=== PATIENT | female | born 1970 | race Caucasian/White ===

== ENCOUNTER 2016-08-07 12:21 | Emergency (ER) | payer MEDICARE, MEDICAID ==
[2016-08-07 12:33] VITALS: BP 154/102
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
== END 2016-08-07 13:02 | disposition home or self-care (01) ==
LOC: JP.ED 12:21
DX: L30.9 Dermatitis, unspecified (principal); H54.7 Unspecified visual loss; E78.00 Pure hypercholesterolemia, unspecified; I10 Essential (primary) hypertension; J45.909 Unspecified asthma, uncomplicated; K21.9 Gastro-esophageal reflux disease without esophagitis; Z90.49 Acquired absence of other specified parts of digestive tract; Z98.84 Bariatric surgery status; Z79.899 Other long term (current) drug therapy
CPT/HCPCS: 99282; 99283

== ENCOUNTER 2017-06-11 22:50 | Emergency (ER) | payer MEDICAID, MEDICARE ==
[2017-06-11 23:15] VITALS: BP 163/84
[2017-06-11] MEDS ORDERED: Glycerin Adult 2.1 GM Supp RECTAL ONE (23:26)
--- NOTE | 2017-06-11 23:32 | EDM.PDOC ---
ED HPI GENERAL MEDICAL PROBLEM - General Chief Complaint: Abdominal Pain Stated Complaint: BLOOD IN STOOL Time Seen by Provider: 06/11/17 23:15 Source of Information: Reports: Patient, Old Records, RN History Limitations: Reports: No Limitations - History of Present Illness INITIAL COMMENTS - FREE TEXT/NARRATIVE: 46 yo female presents with blood on her stool and on the toilet paper after passing a hard stool tonight. Has a pHx of both hemorrhoids and an anal fissure. She has not had colonoscopy. She did have some anal pain with the passage of the stool. She also notes some mild suprapubic tenderness today. No fever. Not more dizzy with standing than normal. No nausea. Onset: Today Onset Date: 06/11/17 Duration: Minutes:, Other (one episode only) Location: Reports: Abdomen (low) Quality: Reports: Dull Severity: Mild Improves with: Reports: None Worsens with: Reports: None Context: Reports: Other (blood with stool passage tonight.) Associated Symptoms: Denies: Diaphoresis, Fever/Chills, Loss of Appetite, Malaise, Nausea/Vomiting, Shortness of Breath, Syncope, Weakness Treatments MANAGEMENT SPECIALIST: Reports: Other (see below) (none) Lower Pelvic Pain Score (Numeric/FACES): 8 - Related Data Allergies Allergy/AdvReac Type Severity Reaction Status Date / Time No Known Allergies Allergy Verified 06/11/17 23:13 Home Meds: Home Meds Citalopram [Citalopram HBr] 60 mg PO DAILY 09/20/13 [History] Ferrous Sulfate 500 gm MC BIDMEALS 09/20/13 [History] Loratadine [Claritin RediTabs] 10 mg PO DAILY PRN 09/20/13 [History] Meclizine [Antivert] 25 mg PO DAILY PRN 09/20/13 [History] Naproxen [EC-Naprosyn] 500 mg PO BID PRN 09/20/13 [History] Vit B12/Fa/Pyridoxine HCl/AA15 [Glycotrol] 1 cap PO QAM 09/20/13 [History] Vit D3/Folic Acid/B2/B6/B12 [Folgard Tablet] 1 cap PO QAM 09/20/13 [History] Zolpidem [Ambien] 10 mg PO BEDTIME 09/20/13 [History] Albuterol Sulfate [Proair Hfa] 1 - 2 puff IH Q4H PRN 06/02/14 [History] Albuterol [Proventil Neb Soln] 3 ml INH Q6H PRN 06/02/14 [History] Fluticasone Propionate [Flovent HFA 110 MCG] 2 puff INH BID PRN 06/02/14 [ History] Calcium Citrate/Vitamin D3 [Calcium Citrate + D] 1 tab.chew PO BID 06/20/14 [ History] metFORMIN HCl [Metformin HCl] 500 mg PO BIDMEALS 07/29/15 [History] Ondansetron [Zofran ODT] 4 mg PO Q4HR PRN #30 tab.dis 07/30/15 [Rx] Omeprazole Magnesium [Prilosec Otc] 20 mg PO DAILY 08/18/15 [History] Sulfamethoxazole/Trimethoprim [IJD: Sulfamethoxazole/Trimethoprim DS] 1 tab PO BID #18 tablet 11/02/15 [Rx] Past Medical History HEENT History: Reports: Allergic Rhinitis, Impaired Vision Cardiovascular History: Reports: High Cholesterol, Hypertension Respiratory History: Reports: Asthma, Bronchitis, Recurrent Gastrointestinal History: Reports: Cholelithiasis, Chronic Constipation, GERD Genitourinary History: Reports: UTI, 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2 Used Tobacco, but Quit: Yes Month/Year Tobacco Last Used: 2005 Second Hand Smoke Exposure: No - Caffeine Use Caffeine Use: Reports: Coffee - Alcohol Use Days Per Week of Alcohol Use: 0 Number of Drinks Per Day: 1 Total Drinks Per Week: 0 - Recreational Drug Use Recreational Drug Use: No - Living Situation & Occupation Living situation: Reports: Occupation: Disabled ED ROS GENERAL - Review of Systems Review Of Systems: See Below Constitutional: Reports: No Symptoms HEENT: Reports: No Symptoms, Vertigo Cardiovascular: Reports: No Symptoms Endocrine: Reports: No Symptoms GI/Abdominal: Reports: Abdominal Pain (mild suprapubic tenderness.), Bloody Stool, Constipation (hard stool, incomplete evacuation.), Hematochezia. Denies : Anorexia, Black Stool, Diarrhea, Decreased Appetite, Difficulty Swallowing, Distension, Flatus, Hematemesis, Melena, Nausea, Vomiting : Denies: No Symptoms Musculoskeletal: Reports: No Symptoms Skin: Reports: No Symptoms Neurological: Reports: No Symptoms ED EXAM, GI/ABD - Physical Exam Exam: See Below Exam Limited By: No Limitations General Appearance: Alert, WD/WN, No Apparent Distress Eyes: Bilateral: Normal Appearance Ears: Normal External Exam, Normal Canal, Hearing Grossly Normal, Normal TMs Nose: Normal Inspection, Normal Mucosa, No Blood Throat/Mouth: Normal Inspection, Normal Lips, Normal Oropharynx, Normal Voice, No Airway Compromise Head: Atraumatic, Normocephalic Neck: Normal Inspection, Supple, Non-Tender Respiratory/Chest: No Respiratory Distress, Lungs Clear, Normal Breath Sounds, No Accessory Muscle Use Cardiovascular: Regular Rate, Rhythm GI/Abdominal Exam: Normal Bowel Sounds, Soft, No Distention, Tender (very slight suprapubic tenderness.) Back Exam: Normal Inspection. No: CVA Tenderness (R), CVA Tenderness (L) Extremities: Normal Inspection, Normal Range of Motion, Non-Tender, No Pedal Edema Neurological: Alert, Oriented, CN II-XII Intact, Normal Cognition, No Motor/ Sensory Deficits Psychiatric: Normal Affect, Normal Mood Skin Exam: Warm, Dry, Intact, Normal Color, No Rash Lymphatic: No Adenopathy Course - Vital Signs Text/Narrative:: No stool with glycerin supp, liquidy stool with Fleets enema-no pain relief. Last Recorded V/S: Last Vital Signs Temp 37.0 C 06/11/17 23:11 Pulse 94 06/11/17 23:11 Resp 18 06/11/17 23:11 BP 163/84 H 06/11/17 23:11 Pulse Ox 98 06/11/17 23:11 - Orders/Labs/Meds Orders: Active Orders 24 hr Category Date Time Status Enema [RC] ASDIRECTED Care 06/12/17 00:38 Active Abdomen 1V Flat [CR] Stat Exams 06/12/17 01:44 Taken Abdomen Pelvis w Cont [CT] Stat Exams 06/12/17 02:07 Taken UA W/MICROSCOPIC [URIN] Stat Lab 06/11/17 23:31 Ordered Magnesium Citrate [Citrate of Magnesia] Med 06/12/17 04:10 Once 296 ml PO ONETIME ONE Labs: Laboratory Tests 06/11/17 06/11/17 06/12/17 Range/Units 23:31 23:35 00:06 WBC 11.2 H (4.5-11.0) K/uL RBC 4.38 (3.30-5.50) M/uL Hgb 11.9 L (12.0-15.0) g/dL Hct 37.9 (36.0-48.0) % MCV 87 (80-98) fL MCH 27 (27-31) pg MCHC 31 L (32-36) % Plt Count 266 (150-400) K/uL C-Reactive Protein 0.60 H (0.0-0.3) mg/dL Urine Color Yellow Urine Appearance Clear Urine pH 6.0 (4.5-8.0) Ur Specific [place] 1.010 (1.008-1.030) Urine Protein Negative (NEGATIVE) mg/dL Urine Glucose (UA) Normal (NEGATIVE) mg/dL Urine Ketones Negative (NEGATIVE) mg/dL Urine Occult Blood Large (NEGATIVE) Urine Nitrite Negative (NEGATIVE) Urine Bilirubin Negative (NEGATIVE) Urine Urobilinogen Normal (NORMAL) mg/dL Ur Leukocyte Esterase Small (NEGATIVE) Urine RBC 0-5 (0-5) Urine WBC 0-5 (0-5) Ur Epithelial Cells Few Amorphous Sediment Few Urine Bacteria Few Urine Mucus Not seen Meds: Medications Discontinued Medications Generic Name Dose Route Start Last Admin Trade Name Freq PRN Reason Stop Dose Admin Acetaminophen 1,000 mg 06/11/17 23:47 06/11/17 23:51 Tylenol Extra Strength PO 06/11/17 23:48 1,000 mg ONETIME ONE Administration Glycerin 1 supp 06/11/17 23:26 06/11/17 23:35 Sani-Supp Adult RECTAL 06/11/17 23:27 1 supp ONETIME ONE Administration Sodium Chloride 79 mls @ 3.9 mls/sec 06/12/17 02:43 06/12/17 02:57 Normal Saline IV 06/12/17 02:44 3.9 mls/sec ASDIRECTED STA Administration Iopamidol 129 ml 06/12/17 02:43 06/12/17 02:57 Isovue-300 (61%) IV 06/12/17 02:44 150 ml . DIRECTED STA Administration Ketorolac Tromethamine 30 mg 06/12/17 02:12 06/12/17 02:23 Toradol IVPUSH 06/12/17 02:13 30 mg ONETIME ONE Administration - Radiology Interpretation Free Text/Narrative:: Abdominal [id number] stool throughout the abdomen CT abdomen/pelvis-stool in colon, otherwise neg. CT Results Date: 06/12/17 CT Results Time: 04:10 Departure - Departure Time of Disposition: 15:00 Disposition: Home, Self-Care 01 Condition: Good Clinical Impression: Anal fissure Constipation Qualifiers: Constipation type: unspecified constipation type Qualified Code(s): K59.00 - Constipation, unspecified - Discharge Information Referrals: Kannan Blue MD [Primary Care Provider] - Forms: ED Department Discharge - My Orders Last 24 Hours: My Active Orders 06/11/17 23:31 UA W/MICROSCOPIC [URIN] Stat 06/12/17 00:38 Enema [RC] ASDIRECTED 06/12/17 01:44 Abdomen 1V Flat [CR] Stat 06/12/17 02:07 Abdomen Pelvis w Cont [CT] Stat 06/12/17 04:10 Magnesium Citrate [Citrate of Magnesia] 296 ml PO ONETIME ONE - Assessment/Plan Last 24 Hours: My Active Orders 06/11/17 23:31 UA W/MICROSCOPIC [URIN] Stat 06/12/17 00:38 Enema [RC] ASDIRECTED 06/12/17 01:44 Abdomen 1V Flat [CR] Stat 06/12/17 02:07 Abdomen Pelvis w Cont [CT] Stat 06/12/17 04:10 Magnesium Citrate [Citrate of Magnesia] 296 ml PO ONETIME ONE
[2017-06-11] MEDS ORDERED: Acetaminophen 500 MG Tab PO ONE (23:47)
[2017-06-12] MEDS ORDERED: Ketorolac 30 MG/ML SDV IVPUSH ONE (02:12)
[2017-06-12] MEDS ORDERED: Iopamidol 612 MG/ML 150 ML Bottle IV STA (02:43)
[2017-06-12] MEDS ORDERED: Magnesium Citrate Solution 296 ML Bottle PO ONE (04:10)
--- NOTE | 2017-06-13 09:03 | CR ---
Abdomen 1V Flat HISTORY: pain FINDINGS: Bowel gas pattern is nonspecific. No obstruction or free air is identified. No soft tissue mass, orga nomegaly, or abnormal calcifications are seen. Bony structures are unremarkable. IMPRESSION: Nonspecific abdomen.
== END 2017-06-12 04:31 | disposition home or self-care (01) ==
LOC: JP.ED 22:50
DX: K60.2 Anal fissure, unspecified (principal); K59.00 Constipation, unspecified; E78.00 Pure hypercholesterolemia, unspecified; I10 Essential (primary) hypertension; J45.909 Unspecified asthma, uncomplicated; K21.9 Gastro-esophageal reflux disease without esophagitis; E11.9 Type 2 diabetes mellitus without complications; Z87.440 Personal history of urinary (tract) infections; Z98.84 Bariatric surgery status; Z79.899 Other long term (current) drug therapy
CPT/HCPCS: 36415; 74018; 74177; 81001; 85027; 86140; 96374; 99285; A9270; J1885; J7030; 99283

== ENCOUNTER 2017-06-21 07:37 | Day surgery (SDC) | payer MEDICARE, MEDICAID ==
[2017-06-21] MEDS ORDERED: Lactated Ringers 1,000 ML IV SCH (08:15)
[2017-06-21] MEDS ORDERED: ceFAZolin 1 GM in Premix Bag 1 BAG IV ONE (08:45)
[2017-06-21] MEDS ORDERED: ceFAZolin 1 GM in Sodium Chloride 0.9% 50 ML IV ONE (08:45)
[2017-06-21] MEDS ORDERED: Bupivacaine 0.5% 50 ML MDV ONE (09:09)
[2017-06-21] MEDS ORDERED: fentaNYL 100 MCG/2 ML SDV ONE (09:28)
[2017-06-21] MEDS ORDERED: Midazolam 1 MG/ML 2 ML SDV ONE (09:28)
[2017-06-21] MEDS ORDERED: Propofol 200 MG/20 ML SDV ONE (09:28)
[2017-06-21] MEDS ORDERED: Acetaminophen/HYDROcodone 325-5 MG Tab PO PRN (10:44)
[2017-06-21 11:02] VITALS: BP 136/83
--- NOTE | 2017-06-21 18:18 | OR ---
DATE OF PROCEDURE: 06/21/2017 PREOPERATIVE DIAGNOSIS: Left carpal tunnel. POSTOPERATIVE DIAGNOSIS: Left carpal tunnel. PROCEDURE PERFORMED: Release of left transverse carpal ligament. ESTIMATED BLOOD LOSS: Minimum. COMPLICATIONS: No complication. INDICATIONS: Dolly is a healthy 46-year-old, had an EMG in February of this year. She has been having some tingling, numbness sensation of the territory of the median nerve of her left. The EMG showed moderate carpal tunnel, but since this was progressive not only at night but during the daytime, still bothered, decided to proceed with surgery. I discussed with the patient the possible risks, benefits, alternatives, and complications of surgery. The nature of the surgery was explained. All questions were answered and I had informed consent. DESCRIPTION OF THE PROCEDURE: The patient was brought to the OR. I did my markings on the left wrist. She did receive antibiotics preop. The DAM OPERATOR proceeded with slight IV sedation. The patient was put on her back and tourniquet was applied to the left upper extremity in proximity. Sterile prep and dressing were done in the usual manner on the left hand. Time- out was taken to identify the correct surgical site to make sure all instrumentation were present in the room. I did local block with Marcaine 0.25 plain subcutaneous tissue over the left wrist. The arm was elevated, tourniquet was raised to 250 mmHg. A 3 cm incision was done starting at the wrist crease going ulnar to the thenar muscle belly and dissection was carried down to the subcutaneous tissue, down to the transverse carpal ligament. A slight opening was done proximally to the transverse carpal ligament making sure not to violate the deep structures, afterwards the groove adapter was passed underneath the transverse carpal ligament and a gradual release is done with the scalpel which went well. She had a slight inflammation of the nerve, but the nerve was intact. The site was washed with saline. The skin was closed with nylon 3-0 simple sutures and the compressing dressing was applied. Tourniquet was released. Blood loss was minimum. There was no complication. The patient tolerated well the operation and she was to recovery room in good condition. Adalid Upton MD /[id number]
== END 2017-06-21 11:24 | disposition home or self-care (01) ==
LOC: JP.SDS 07:37
PROVIDERS: ATTEND Orthopaedic Surgery
DX: G56.02 Carpal tunnel syndrome, left upper limb (principal); E11.9 Type 2 diabetes mellitus without complications; E66.01 Morbid (severe) obesity due to excess calories; K21.9 Gastro-esophageal reflux disease without esophagitis; J45.909 Unspecified asthma, uncomplicated; F33.41 Major depressive disorder, recurrent, in partial remission; F41.8 Other specified anxiety disorders; Z79.899 Other long term (current) drug therapy; Z98.84 Bariatric surgery status
CPT/HCPCS: 64721; A9270; J0690; J2250; J2704; J3010; J7120

== ENCOUNTER 2019-05-03 08:41 | Emergency (ER) | payer MEDICARE, MEDICAID ==
--- NOTE | 2019-05-03 09:20 | EDM.PDOC ---
ED HPI GENERAL MEDICAL PROBLEM - General Chief Complaint: Respiratory Problem Stated Complaint: CHEST PAINS Time Seen by Provider: 05/03/19 09:19 Source of Information: Reports: Patient History Limitations: Reports: No Limitations - History of Present Illness INITIAL COMMENTS - FREE TEXT/NARRATIVE: pt has been having chest pain for the last 2 days. She has a history of hypertension, up lipids, and diabetes. Onset: Other ( started yesterday. ) Duration: Hour(s): Location: Reports: Chest Associated Symptoms: Reports: Chest Pain, Shortness of Breath Anterior Chest Pain Score (Numeric/FACES): 7 - Related Data Allergies Allergy/AdvReac Type Severity Reaction Status Date / Time No Known Allergies Allergy Verified 05/03/19 08:56 Home Meds: Home Meds Citalopram [Citalopram HBr] 80 mg PO DAILY 09/20/13 [History] Ferrous Sulfate 500 gm MC BIDMEALS 09/20/13 [History] Loratadine [Claritin RediTabs] 10 mg PO DAILY PRN 09/20/13 [History] Meclizine [Antivert] 25 mg PO Q6H PRN 09/20/13 [History] Naproxen [EC-Naprosyn] 500 mg PO BID 09/20/13 [History] Zolpidem [Ambien] 5 mg PO BEDTIME PRN 09/20/13 [History] Albuterol Sulfate [Proair Hfa] 1 - 2 puff IH Q4H PRN 06/02/14 [History] Albuterol [Proventil Neb Soln] 3 ml INH Q6H PRN 06/02/14 [History] Fluticasone Propionate [Flovent HFA 110 MCG] 2 puff INH BID PRN 06/02/14 [ History] Calcium Citrate/Vitamin D3 [Calcium Citrate + D] 1 tab.chew PO BID 06/20/14 [ History] metFORMIN HCl [Metformin HCl] 500 mg PO BIDMEALS 07/29/15 [History] Cholecalciferol (Vitamin D3) [Vitamin D3] 3,000 unit PO DAILY 06/20/17 [History] Cyanocobalamin (Vitamin B-12) [Vitamin B-12] 1,000 mcg SL DAILY 06/20/17 [ History] Docusate Sodium [DOK] 100 mg PO BID 06/20/17 [History] Fruity Chewables Multivitamin 1 tab PO BID 06/20/17 [History] Nitroglycerin [Nitrostat] 0.4 mg SL ASDIRECTED PRN 06/20/17 [History] Nystatin [Nystatin Oint] 1 applic TP BID PRN 06/20/17 [History] Triamcinolone Acetonide [Kenalog 0.1% Crm] 1 applic TOP TID PRN 06/20/17 [ History] Vitamin B Complex [B Complex] 1 each PO DAILY 06/20/17 [History] medroxyPROGESTERone Acetate [Depo-Provera] 150 mg IM Q90D 06/20/17 [History] traZODone HCl [Trazodone HCl] 150 mg PO BEDTIME 06/20/17 [History] Past Medical History HEENT History: Reports: Allergic Rhinitis, Impaired Vision Cardiovascular History: Reports: High Cholesterol, Hypertension Respiratory History: Reports: Asthma, Bronchitis, Recurrent Gastrointestinal History: Reports: Cholelithiasis, Chronic Constipation, GERD Genitourinary History: Reports: UTI, Recurrent 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: Musculoskeletal History: Reports: Osteoarthritis Psychiatric History: Reports: Anxiety, Depression, Panic Attack Endocrine/Metabolic History: Reports: Diabetes, Type II Hematologic History: Reports: B12 Deficiency Dermatologic History: Reports: Cellulitis - Infectious Disease History Infectious Disease History: Reports: Chicken Pox - Past Surgical History Cardiovascular Surgical History: Reports: None Respiratory Surgical History: Reports: None GI Surgical History: Reports: Bariatric Procedure, Cholecystectomy, EGD, Hernia Repair/Other Female Surgical History: Reports: Section Endocrine Surgical History: Reports: None Musculoskeletal Surgical History: Reports: None, Carpal Tunnel Dermatological Surgical History: Reports: None Social & Family History - Family History Family Medical History: Noncontributory - Tobacco Use Smoking Status *Q: Never Smoker Second Hand Smoke Exposure: No - Caffeine Use Caffeine Use: Reports: Coffee, Soda - Recreational Drug Use Recreational Drug Use: No - Living Situation & Occupation Living situation: Reports: Occupation: Disabled ED ROS GENERAL - Review of Systems Review Of Systems: See Below Constitutional: Reports: No Symptoms HEENT: Reports: No Symptoms Respiratory: Reports: Shortness of Breath Cardiovascular: Reports: Chest Pain, Other ( this started 2 days ago. ) Endocrine: Reports: No Symptoms GI/Abdominal: Reports: No Symptoms : Reports: No Symptoms Musculoskeletal: Reports: No Symptoms Skin: Reports: No Symptoms Neurological: Reports: No Symptoms Psychiatric: Reports: Anxiety ED EXAM, GENERAL - Physical Exam Exam: See Below Free Text/Narrative:: pt arrived complaining of chest pain. She is mildly sob. She does have risk factors in that she is diabetic, hads hypertension and up lipids. Her Ekg shows only minor changes. Exam Limited By: No Limitations General Appearance: Alert, Anxious, Mild Distress Ears: Normal TMs Nose: Normal Inspection Throat/Mouth: Normal Inspection Head: Atraumatic Neck: Normal Inspection Respiratory/Chest: No Respiratory Distress Cardiovascular: Regular Rate, Rhythm GI/Abdominal: Soft, Non-Tender (Female) Exam: Deferred Rectal (Female) Exam: Deferred Back Exam: Normal Inspection Extremities: Normal Inspection Neurological: Alert, Oriented, Normal Cognition Course - Vital Signs Last Recorded V/S: Last Vital Signs Temp 36.8 C 05/03/19 09:04 Pulse 94 05/03/19 09:56 Resp 16 05/03/19 09:56 BP 135/72 05/03/19 09:56 Pulse Ox 97 05/03/19 09:56 - Orders/Labs/Meds Orders: Active Orders 24 hr Category Date Time Status EKG Documentation Completion [RC] ASDIRECTED Care 05/03/19 09:29 Active IRON/TIBC [CHEM] Stat Lab 05/03/19 10:14 Ordered Nitroglycerin [Nitrostat] Med 05/03/19 09:33 Active 0.4 mg SL Q5M PRN EKG 12 Lead [EK] Routine Ther 05/03/19 09:29 Ordered Medication Orders Nitroglycerin (Nitrostat) 0.4 mg SL Q5M PRN PRN Reason: Chest Pain Last Admin: 05/03/19 09:54 Dose: 0.4 mg Admin: 05/03/19 09:39 Dose: 0.4 mg Labs: Laboratory Tests 05/03/19 05/03/19 05/03/19 Range/Units 09:38 09:38 09:38 WBC 9.4 (4.5-11.0) K/uL RBC 3.99 (3.30-5.50) M/uL Hgb 10.1 L (12.0-15.0) g/dL Hct 33.8 L (36.0-48.0) % MCV 85 (80-98) fL MCH 25 L (27-31) pg MCHC 30 L (32-36) % Plt Count 267 (150-400) K/uL Neut % (Auto) 59 (36-66) % Lymph % (Auto) 25 (24-44) % [place] % (Auto) 11 H (2-6) % Eos % (Auto) 5 H (2-4) % Baso % (Auto) 0 (0-1) % Sodium 142 (140-148) mmol/L Potassium 3.7 (3.6-5.2) mmol/L Chloride 106 (100-108) mmol/L Carbon Dioxide 24 (21-32) mmol/L Anion Gap 11.7 (5.0-14.0) mmol/L BUN 7 (7-18) mg/dL Creatinine 1.0 (0.6-1.0) mg/dL Est Cr Clr Drug Dosing 48.88 mL/min Estimated GFR (MDRD) 59 L (>60) Glucose 86 (74-106) mg/dL Calcium 8.0 L (8.5-10.1) mg/dL Total Bilirubin 0.8 D (0.2-1.0) mg/dL AST 19 (15-37) U/L ALT 22 (12-78) U/L Alkaline Phosphatase 104 (46-116) U/L Troponin I < 0.017 (0.000-0.056) ng/mL Total Protein 6.7 (6.4-8.2) g/dL Albumin 3.3 L (3.4-5.0) g/dL Globulin 3.4 (2.3-3.5) g/dL Albumin/Globulin Ratio 1.0 L (1.2-2.2) Meds: Medications Generic Name Dose Route Start Last Admin Trade Name Freq PRN Reason Stop Dose Admin Nitroglycerin 0.4 mg 05/03/19 09:33 05/03/19 09:54 Nitrostat SL 0.4 mg Q5M PRN Administration Chest Pain Discontinued Medications Generic Name Dose Route Start Last Admin Trade Name Freq PRN Reason Stop Dose Admin Aspirin 324 mg 05/03/19 09:29 05/03/19 09:38 Aspirin PO 05/03/19 09:30 324 mg ONETIME ONE Administration Ketorolac Tromethamine 60 mg 03/12/20 10:26 Toradol IM 05/03/19 10:27 ONETIME ONE - Re-Assessments/Exams Free Text/Narrative Re-Assessment/Exam: 05/03/19 10:22 pt had a unremarkable ekg. Her trop is normal. She is tender in the ant chest when she is palpated. She had a chest xray that was clear. She did just start a new job where she has to do lifting. Departure - Departure Time of Disposition: 10:25 Disposition: Home, Self-Care 01 Condition: Fair Clinical Impression: Atypical chest pain - Discharge Information Referrals: Kannan Blue MD [Primary Care Provider] - Forms: ED Department Discharge Care Plan Goals: rtc for a exercise cardiolyte, no work today and then return as usual, motrin 600mg tid for chest wall pain. I believe this is related to lifting things she is not used too.follow up with Dr Blue in the next week. Sepsis Event Note - Evaluation Sepsis Screening Result: No Definite Risk - Focused Exam Vital Signs: Vital Signs Temp Pulse Resp BP BP Pulse Ox 05/03/19 09:56 94 16 135/72 97 05/03/19 09:54 135/72 05/03/19 09:39 136/81 05/03/19 09:04 36.8 C 92 16 136/81 97 05/03/19 08:55 36.8 C 92 16 136/81 97 Date Exam was Performed: 05/03/19 Time Exam was Performed: 10:30 - My Orders Last 24 Hours: My Active Orders 05/03/19 09:29 EKG Documentation Completion [RC] ASDIRECTED EKG 12 Lead [EK] Routine 05/03/19 09:33 Nitroglycerin [Nitrostat] 0.4 mg SL Q5M PRN 05/03/19 10:14 IRON/TIBC [CHEM] Stat - Assessment/Plan Last 24 Hours: My Active Orders 05/03/19 09:29 EKG Documentation Completion [RC] ASDIRECTED EKG 12 Lead [EK] Routine 05/03/19 09:33 Nitroglycerin [Nitrostat] 0.4 mg SL Q5M PRN 05/03/19 10:14 IRON/TIBC [CHEM] Stat
[2019-05-03] MEDS ORDERED: Aspirin 81 MG Tab.Chew PO ONE (09:29)
[2019-05-03] MEDS: Nitroglycerin 0.4 MG Tab.SL SL PRN ×2 (09:39→09:54)
[2019-05-03 09:55] VITALS: BP 135/72
[2019-05-03 09:56] VITALS: PULSE 94
--- NOTE | 2019-05-03 10:11 | CR ---
CHEST: 2 view CLINICAL HISTORY:Chest pain COMPARISON:2016 FINDINGS: The heart size, pulmonary vascularity and hilar structures are normal. No infiltrate effusion or pneumothorax is seen. IMPRESSION: No acute cardiopulmonary process.
[2019-05-03] MEDS ORDERED: Ketorolac 60 MG/2 ML SDV IM ONE (10:26)
== END 2019-05-03 10:50 | disposition home or self-care (01) ==
LOC: JP.ED 08:41
DX: R07.89 Other chest pain (principal); I10 Essential (primary) hypertension; E78.00 Pure hypercholesterolemia, unspecified; K21.9 Gastro-esophageal reflux disease without esophagitis; F41.9 Anxiety disorder, unspecified; F32.9 Major depressive disorder, single episode, unspecified; E11.9 Type 2 diabetes mellitus without complications; J45.909 Unspecified asthma, uncomplicated; Z79.899 Other long term (current) drug therapy; Z79.4 Long term (current) use of insulin
CPT/HCPCS: 36415; 71046; 80053; 83550; 84484; 85025; 93005; 96372; 99285; A9270; J1885

== ENCOUNTER 2020-04-11 07:42 | Day surgery (SDC) | payer MEDICARE, MEDICAID ==
[2020-04-11] MEDS ORDERED: Propofol 200 MG/20 ML SDV ONE (08:02)
[2020-04-11] MEDS ORDERED: fentaNYL 100 MCG/2 ML SDV ONE ×2 (08:03→09:36)
[2020-04-11] MEDS ORDERED: Midazolam 1 MG/ML 2 ML SDV ONE ×2 (08:03→09:36)
[2020-04-11] MEDS ORDERED: Dextrose 5%-Lactated Ringers 1,000 ML IV SCH (08:15)
[2020-04-11 11:13] VITALS: BP 133/81; PULSE 70
--- NOTE | 2020-04-20 11:46 | OR ---
DATE OF PROCEDURE: 04/11/2020 SURGEON: Dino Travis MD PREOPERATIVE DIAGNOSIS: Indications for screening colonoscopy. POSTOPERATIVE DIAGNOSIS: Normal colonoscopy. OPERATIVE PROCEDURE: Flexible colonoscopy. ANESTHESIA: IV sedation. INDICATIONS FOR PROCEDURE: A 49-year-old female presenting for initial colonoscopy. She has no personal or family history of colon polyps or carcinoma. The plan is to proceed with a colonoscopy with biopsies and/or polypectomy as indicated. Potential risks including bleeding and perforation were discussed, and the patient wishes to proceed. DETAILS OF PROCEDURE: The patient was taken to the operating room, placed in a left lateral decubitus position. IV sedation was administered, after which the initial digital rectal exam was performed and was unremarkable. Colonoscope was then passed into the rectum with retroflexion revealing uncomplicated hemorrhoidal columns. Scope was then eventually passed to the level of the cecum. There was fairly good prep with small amount of liquid and some solid stool was present, but the vast majority of the mucosal surfaces were well visualized. To that level, there were no diverticula. No areas of colitis. No polyps or other signs of neoplasia. Scope was then withdrawn, the above findings were reconfirmed, and the procedure was then concluded. Due to the normal exam today and the lack of any other personal history of colonic neoplasia, next examination should be planned in 10 years. Dino Travis MD /[id number]
== END 2020-04-11 11:14 | disposition home or self-care (01) ==
LOC: JP.SDS 07:42
PROVIDERS: ATTEND Surgery
DX: Z12.11 Encounter for screening for malignant neoplasm of colon (principal); K64.9 Unspecified hemorrhoids; J45.909 Unspecified asthma, uncomplicated; E11.9 Type 2 diabetes mellitus without complications; E66.01 Morbid (severe) obesity due to excess calories; Z68.42 Body mass index [BMI] 45.0-49.9, adult
CPT/HCPCS: 81025; J2250; J2704; J3010; J7121

== ENCOUNTER 2021-04-27 07:54 | Emergency (ER) | payer MEDICARE, MEDICAID ==
[2021-04-27 08:08] VITALS: BP 168/93; PULSE 112
[2021-04-27 08:52] LABS: CORONAVIRUS COVID-19 NAA NEGATIVE (NEGATIVE)
== END 2021-04-27 10:37 | disposition home or self-care (01) ==
LOC: JP.ED 07:54
DX: N39.0 Urinary tract infection, site not specified (principal); E78.00 Pure hypercholesterolemia, unspecified; I10 Essential (primary) hypertension; J45.909 Unspecified asthma, uncomplicated; E11.9 Type 2 diabetes mellitus without complications; E66.9 Obesity, unspecified; Z68.31 Body mass index [BMI] 31.0-31.9, adult; Z79.899 Other long term (current) drug therapy; Z79.82 Long term (current) use of aspirin; Z79.84 Long term (current) use of oral hypoglycemic drugs; Z20.822 Contact with and (suspected) exposure to COVID-19
CPT/HCPCS: 0241U; 36415; 71046; 80053; 81001; 83605; 84145; 84484; 85025; 87086; 99283; 99283-25

== ENCOUNTER 2021-09-21 20:11 | Emergency (ER) | payer MEDICAID, MEDICARE ==
[2021-09-21 21:16] LABS: ESTIMATED GFR 68 mL/min (>60); TROPONIN I HIGH SENSITIVITY 5.3 pg/mL (<=60.3)
[2021-09-21] MEDS ORDERED: Sodium Chloride 0.9% 100 ML IV SCH (22:15)
[2021-09-21] MEDS ORDERED: Iopamidol 755 Mg/ML 100 ML Bottle IV SCH (22:15)
[2021-09-21 22:58] VITALS: BP 159/72; PULSE 69
[2021-09-21] MEDS ORDERED: Ketorolac 10 MG Tab PO ONE (23:26)
== END 2021-09-21 23:42 | disposition home or self-care (01) ==
LOC: JP.ED 20:11
DX: R09.1 Pleurisy (principal); B33.0 Epidemic myalgia; E78.00 Pure hypercholesterolemia, unspecified; I10 Essential (primary) hypertension; E11.9 Type 2 diabetes mellitus without complications; M19.90 Unspecified osteoarthritis, unspecified site; F17.210 Nicotine dependence, cigarettes, uncomplicated; E66.9 Obesity, unspecified; Z79.84 Long term (current) use of oral hypoglycemic drugs; Z20.822 Contact with and (suspected) exposure to COVID-19; Z68.32 Body mass index [BMI] 32.0-32.9, adult
CPT/HCPCS: 36415; 71275; 80053; 84484; 85025; 85379; 86140; 87635; 93005; 93010; 99282; 99285; A9270; J3490; Q9967; U0002

== ENCOUNTER 2021-09-25 08:48 | Emergency (ER) | payer MEDICAID ==
[2021-09-25 09:08] VITALS: BP 172/93; PULSE 94
== END 2021-09-25 09:55 | disposition home or self-care (01) ==
LOC: JP.ED 08:48
DX: M94.0 Chondrocostal junction syndrome [Tietze] (principal); J45.909 Unspecified asthma, uncomplicated; K21.9 Gastro-esophageal reflux disease without esophagitis; I10 Essential (primary) hypertension; E11.9 Type 2 diabetes mellitus without complications; E66.9 Obesity, unspecified; Z68.32 Body mass index [BMI] 32.0-32.9, adult; Z79.899 Other long term (current) drug therapy; Z79.84 Long term (current) use of oral hypoglycemic drugs; Z87.891 Personal history of nicotine dependence
CPT/HCPCS: 93005; 99284

== ENCOUNTER 2022-02-15 15:27 | Emergency (ER) | payer MEDICAID, MEDICARE ==
[2022-02-15 17:39] LABS: CORONAVIRUS COVID-19 NAA POSITIVE (NEGATIVE)
[2022-02-15 18:54] VITALS: BP 159/101; PULSE 92
== END 2022-02-15 17:58 | disposition home or self-care (01) ==
LOC: JP.ED 15:27
DX: U07.1 COVID-19 (principal); I10 Essential (primary) hypertension; E11.9 Type 2 diabetes mellitus without complications; E66.9 Obesity, unspecified; Z68.31 Body mass index [BMI] 31.0-31.9, adult; Z79.899 Other long term (current) drug therapy; Z79.84 Long term (current) use of oral hypoglycemic drugs; Z87.891 Personal history of nicotine dependence
CPT/HCPCS: 0241U; 99283

== ENCOUNTER 2022-04-22 09:50 | Emergency (ER) | payer MEDICAID, MEDICARE ==
[2022-04-22 10:40] VITALS: BP 150/81; PULSE 75
[2022-04-22] MEDS ORDERED: Sodium Chloride 0.9% 10 ML Syringe FLUSH PRN (11:14)
[2022-04-22] MEDS ORDERED: Lactated Ringers 1,000 ML IV SCH (11:15)
[2022-04-22 11:49] LABS: ESTIMATED GFR 77 mL/min (>60)
[2022-04-22 12:40] LABS: CORONAVIRUS COVID-19 NAA NEGATIVE (NEGATIVE)
== END 2022-04-22 13:22 | disposition home or self-care (01) ==
LOC: JP.ED 09:50
DX: K52.9 Noninfective gastroenteritis and colitis, unspecified (principal); I10 Essential (primary) hypertension; J45.909 Unspecified asthma, uncomplicated; K21.9 Gastro-esophageal reflux disease without esophagitis; M19.90 Unspecified osteoarthritis, unspecified site; E11.9 Type 2 diabetes mellitus without complications; E66.9 Obesity, unspecified; Z68.27 Body mass index [BMI] 27.0-27.9, adult; Z79.84 Long term (current) use of oral hypoglycemic drugs; Z79.899 Other long term (current) drug therapy; Z20.822 Contact with and (suspected) exposure to COVID-19
CPT/HCPCS: 0241U; 36415; 80053; 83605; 83690; 85025; 96360; 99284; J3490; J7120

== ENCOUNTER 2024-01-01 09:18 | Emergency (ER) | payer MEDICAID, MEDICARE, OTHER ==
[2024-01-01 10:22] LABS: BASOPHILS ABSOLUTE AUTO 0.04 K/uL (0.00-0.10); BASOPHILS PERCENT AUTO 0.5 % (0.1-1.3); EOSINOPHILS ABSOLUTE AUTO 0.36 K/uL (0.00-0.40); EOSINOPHILS PERCENT AUTO 4.2 % (0.0-5.4); HEMATOCRIT 34.2 % (34.3-46.0); HEMOGLOBIN 10.4 g/dL (11.2-15.5); IMMATURE GRAN PERCENT AUTO 0.2 % (0.0-0.7); LYMPHOCYTES ABSOLUTE AUTO 2.64 K/uL (0.8-3.3); LYMPHOCYTES PERCENT AUTO 30.7 % (11.4-47.7); MEAN CORPUSCULAR HEMOGLOBIN 28.8 pg (31.6-35.5); MEAN CORPUSCULAR HGB CONC 30.4 g/dL (31.6-35.5); MEAN CORPUSCULAR VOLUME 94.7 fL (81.4-99.0); MONOCYTES PERCENT AUTO 9.3 % (3.3-12.6); NEUTROPHILS ABSOLUTE AUTO 4.75 K/uL (1.0-7.6); NEUTROPHILS PERCENT AUTO 55.1 % (40.0-78.1); PLATELET COUNT,PLT 276 K/uL (130-375); RED BLOOD CELL COUNT 3.61 M/uL (3.77-5.24); WHITE BLOOD CELL COUNT,WBC 8.6 K/uL (3.2-11.0)
[2024-01-01 10:24] LABS: IMMATURE GRAN ABSOLUTE AUTO 0.02 K/uL (0.00-0.23)
[2024-01-01 10:32] LABS: BILIRUBIN,URINE NEGATIVE (NEGATIVE); COLOR,URINE YELLOW (YELLOW); GLUCOSE,URINE NEGATIVE (NEGATIVE); KETONES,URINE NEGATIVE (NEGATIVE); LEUKOCYTE ESTERASE,URINE TRACE (NEGATIVE); NITRITE,URINE NEGATIVE (NEGATIVE); OCCULT BLOOD,URINE SMALL (NEGATIVE); PROTEIN,URINE NEGATIVE (NEGATIVE); UROBILINOGEN,URINE 0.2 EU/dL (0.2-1.0)
[2024-01-01 10:34] LABS: HEMOGLOBIN A1C 5.8 % (4.5-6.2)
[2024-01-01 10:38] LABS: AMORPHOUS SEDIMENT,URINE NOT SEEN; APPEARANCE,URINE SLIGHTLY CLOUDY (CLEAR); BACTERIA,URINE FEW; EPITHELIAL CELLS,URINE FEW; MUCUS,URINE NOT SEEN; WBC,URINE 0-5 (0-5)
[2024-01-01 10:51] LABS: ALANINE AMINOTRANSFERASE,ALT 24 U/L (12-78); ALBUMIN 3.6 g/dL (3.4-5.0); ALKALINE PHOSPHATASE 125 U/L (46-116); ASPARTATE AMNIOTRANSFERASE,AST 21 U/L (15-37); BILIRUBIN TOTAL 0.4 mg/dL (0.2-1.0); BLOOD UREA NITROGEN,BUN 10 mg/dL (7-18); CALCIUM 8.7 mg/dL (8.5-10.1); CARBON DIOXIDE,CO2 31 mmol/L (21-32); CHLORIDE,CL 105 mmol/L (100-108); CREATININE 0.9 mg/dL (0.6-1.0); EST CRCL DRUG DOSING (CG) 51.33 mL/min; ESTIMATED GFR 76 mL/min (>60); GLUCOSE RANDOM 91 mg/dL (74-106); POTASSIUM,K 3.4 mmol/L (3.6-5.2); PRO B-TYPE NATRIUR PEPT,BNPPRO 91 pg/mL (5-125); PROTEIN TOTAL,TP 7.2 g/dL (6.4-8.2); SODIUM,NA 142 mmol/L (140-148)
[2024-01-01 10:52] LABS: ANION GAP 9.4 mmol/L (5.0-14.0)
[2024-01-01] MEDS: Albuterol/Ipratropium 3.0-0.5 MG/3 ML Neb Soln NEB ONE (11:51)
[2024-01-01] MEDS: Nitroglycerin 0.4 MG Tab.SL SL ONE (12:11)
[2024-01-01] MEDS: LORazepam 0.5 MG Tab PO ONE (12:31)
[2024-01-01] MEDS: Sodium Chloride 0.9% 1,000 ML IV ONE (14:08)
[2024-01-01] MEDS: Sodium Chloride 0.9% 500 ML IV ONE ×2 (14:10→14:47)
[2024-01-01] MEDS: Sodium Chloride 0.9% 100 ML IV SCH (14:12)
[2024-01-01] MEDS: Iopamidol 755 Mg/ML 100 ML Bottle IV SCH (14:12)
[2024-01-01] MEDS: Sodium Chloride 0.9% 10 ML Syringe FLUSH PRN (14:13)
[2024-01-01 14:48] VITALS: BP 113/74; PULSE 61
== END 2024-01-01 15:26 | disposition home or self-care (01) ==
LOC: JP.ED 09:18
DX: R06.02 Shortness of breath (principal); I10 Essential (primary) hypertension; J45.909 Unspecified asthma, uncomplicated; E78.00 Pure hypercholesterolemia, unspecified; K21.9 Gastro-esophageal reflux disease without esophagitis; E11.9 Type 2 diabetes mellitus without complications; E66.9 Obesity, unspecified; Z79.899 Other long term (current) drug therapy
CPT/HCPCS: 36415; 71046; 71275; 80053; 81001; 83036; 83735; 83880; 84484; 85025; 85379; 87086; 93005; 94640; 96360; 96361; 99285; A9270; J3490; J7040; Q9967; 93010; 99284; J7620

== ENCOUNTER 2024-03-09 15:11 | Emergency (ER) | payer OTHER ==
[2024-03-09 15:29] VITALS: BP 145/92; PULSE 78
[2024-03-09] MEDS: Ketorolac 30 MG/ML SDV IM ONE (15:48)
[2024-03-09] MEDS: Acetaminophen/HYDROcodone 325-5 MG Tab PO ONE (15:48)
== END 2024-03-09 16:01 | disposition home or self-care (01) ==
LOC: JP.ED 15:11
DX: K04.7 Periapical abscess without sinus (principal); I10 Essential (primary) hypertension; J45.909 Unspecified asthma, uncomplicated; K21.9 Gastro-esophageal reflux disease without esophagitis; E11.9 Type 2 diabetes mellitus without complications; E66.9 Obesity, unspecified; Z68.30 Body mass index [BMI] 30.0-30.9, adult; Z79.51 Long term (current) use of inhaled steroids; Z79.84 Long term (current) use of oral hypoglycemic drugs; Z79.899 Other long term (current) drug therapy
CPT/HCPCS: 96372; 99283; A9270; J1885

== ENCOUNTER 2024-08-20 21:43 | Emergency (ER) | payer OTHER ==
[2024-08-20] MEDS: Ketorolac 30 MG/ML SDV IM ONE (22:49)
[2024-08-20 23:20] VITALS: BP 153/76; PULSE 61
== END 2024-08-20 23:27 | disposition home or self-care (01) ==
LOC: JP.ED 21:43
DX: M25.562 Pain in left knee (principal); I10 Essential (primary) hypertension; E11.9 Type 2 diabetes mellitus without complications; E66.9 Obesity, unspecified; J45.909 Unspecified asthma, uncomplicated; Z79.899 Other long term (current) drug therapy; Z79.51 Long term (current) use of inhaled steroids; Z79.84 Long term (current) use of oral hypoglycemic drugs; Z68.29 Body mass index [BMI] 29.0-29.9, adult
CPT/HCPCS: 73562; 96372; 99283; J1885

== ENCOUNTER 2024-11-13 19:53 | Emergency (ER) | payer MEDICAID ==
[2024-11-13 20:36] LABS: BASOPHILS ABSOLUTE AUTO 0.03 K/uL (0.00-0.10); BASOPHILS PERCENT AUTO 0.3 % (0.1-1.3); EOSINOPHILS ABSOLUTE AUTO 0.42 K/uL (0.00-0.40); EOSINOPHILS PERCENT AUTO 4.7 % (0.0-5.4); IMMATURE GRAN PERCENT AUTO 0.2 % (0.0-0.7); LYMPHOCYTES ABSOLUTE AUTO 3.24 K/uL (0.8-3.3); LYMPHOCYTES PERCENT AUTO 36.1 % (11.4-47.7); MONOCYTES ABSOLUTE AUTO 0.76 K/uL (0.20-0.90); MONOCYTES PERCENT AUTO 8.5 % (3.3-12.6); NEUTROPHILS ABSOLUTE AUTO 4.50 K/uL (1.0-7.6); NEUTROPHILS PERCENT AUTO 50.2 % (40.0-78.1); PLATELET COUNT,PLT 308 K/uL (130-375); RED BLOOD CELL COUNT 3.72 M/uL (3.77-5.24); WHITE BLOOD CELL COUNT,WBC 9.0 K/uL (3.2-11.0)
[2024-11-13 20:37] LABS: IMMATURE GRAN ABSOLUTE AUTO 0.02 K/uL (0.00-0.23)
[2024-11-13 21:01] LABS: A/G RATIO 0.9 (1.2-2.2); ALANINE AMINOTRANSFERASE,ALT 27 U/L (12-78); ASPARTATE AMNIOTRANSFERASE,AST 23 U/L (15-37); BILIRUBIN TOTAL 0.4 mg/dL (0.2-1.0); BLOOD UREA NITROGEN,BUN 12 mg/dL (7-18); CARBON DIOXIDE,CO2 27 mmol/L (21-32); CHLORIDE,CL 106 mmol/L (100-108); CREATININE 1.0 mg/dL (0.6-1.0); EST CRCL DRUG DOSING (CG) 46.19 mL/min; ESTIMATED GFR 67 mL/min (>60); GLUCOSE RANDOM 168 mg/dL (74-106); POTASSIUM,K 3.8 mmol/L (3.6-5.2); PROTEIN TOTAL,TP 7.3 g/dL (6.4-8.2); SODIUM,NA 143 mmol/L (140-148); TROPONIN I HIGH SENSITIVITY 5.6 pg/mL (<=60.3)
[2024-11-13 22:42] VITALS: BP 139/82; PULSE 80
== END 2024-11-13 23:59 | disposition home or self-care (01) ==
LOC: JP.ED 19:53
DX: R07.9 Chest pain, unspecified (principal); I10 Essential (primary) hypertension; E78.00 Pure hypercholesterolemia, unspecified; K21.9 Gastro-esophageal reflux disease without esophagitis; J45.909 Unspecified asthma, uncomplicated; E11.9 Type 2 diabetes mellitus without complications; E66.9 Obesity, unspecified; Z79.899 Other long term (current) drug therapy; Z79.84 Long term (current) use of oral hypoglycemic drugs; Z79.82 Long term (current) use of aspirin; Z68.31 Body mass index [BMI] 31.0-31.9, adult
CPT/HCPCS: 36415; 71045; 71045-26; 80053; 84484; 85025; 85379; 93005; 99285

== ENCOUNTER 2024-12-06 03:24 | Emergency (ER) | payer MEDICAID ==
[2024-12-06 04:22] LABS: APPEARANCE,URINE SLIGHTLY CLOUDY (CLEAR); GLUCOSE,URINE NEGATIVE (NEGATIVE); OCCULT BLOOD,URINE LARGE (NEGATIVE)
[2024-12-06 04:39] LABS: SQUAMOUS EPITHELIAL CELLS,UR FEW /HPF; UROTHELIAL CELLS,URINE NOT SEEN /HPF
[2024-12-06 04:52] LABS: BASOPHILS PERCENT AUTO 0.2 % (0.1-1.3); EOSINOPHILS ABSOLUTE AUTO 0.28 K/uL (0.00-0.40); EOSINOPHILS PERCENT AUTO 3.1 % (0.0-5.4); IMMATURE GRAN PERCENT AUTO 0.2 % (0.0-0.7); LYMPHOCYTES ABSOLUTE AUTO 2.00 K/uL (0.8-3.3); LYMPHOCYTES PERCENT AUTO 21.9 % (11.4-47.7); MONOCYTES ABSOLUTE AUTO 0.74 K/uL (0.20-0.90); MONOCYTES PERCENT AUTO 8.1 % (3.3-12.6); NEUTROPHILS ABSOLUTE AUTO 6.06 K/uL (1.0-7.6); NEUTROPHILS PERCENT AUTO 66.5 % (40.0-78.1); PLATELET COUNT,PLT 294 K/uL (130-375); RED BLOOD CELL COUNT 3.73 M/uL (3.77-5.24); WHITE BLOOD CELL COUNT,WBC 9.1 K/uL (3.2-11.0)
[2024-12-06 04:54] LABS: BASOPHILS ABSOLUTE AUTO 0.02 K/uL (0.00-0.10); IMMATURE GRAN ABSOLUTE AUTO 0.02 K/uL (0.00-0.23)
[2024-12-06] MEDS: Ondansetron 4 MG Tab.DIS PO ONE (05:05)
[2024-12-06 05:10] LABS: A/G RATIO 1.0 (1.2-2.2); ALANINE AMINOTRANSFERASE,ALT 26 U/L (12-78); ASPARTATE AMNIOTRANSFERASE,AST 25 U/L (15-37); BILIRUBIN TOTAL 0.4 mg/dL (0.2-1.0); BLOOD UREA NITROGEN,BUN 14 mg/dL (7-18); CARBON DIOXIDE,CO2 28 mmol/L (21-32); CHLORIDE,CL 105 mmol/L (100-108); CREATININE 0.8 mg/dL (0.6-1.0); EST CRCL DRUG DOSING (CG) 57.07 mL/min; ESTIMATED GFR 87 mL/min (>60); GLUCOSE RANDOM 116 mg/dL (74-106); POTASSIUM,K 4.1 mmol/L (3.6-5.2); PROTEIN TOTAL,TP 7.0 g/dL (6.4-8.2); SODIUM,NA 141 mmol/L (140-148)
[2024-12-06] MEDS: cefTRIAXone 1 GM, Lidocaine 1% 2.1 ML IM ONE (06:17)
[2024-12-06 06:41] VITALS: BP 110/67; PULSE 77
== END 2024-12-06 06:40 | disposition home or self-care (01) ==
LOC: JP.ED 03:24
DX: N39.0 Urinary tract infection, site not specified (principal); I10 Essential (primary) hypertension; E78.00 Pure hypercholesterolemia, unspecified; K21.9 Gastro-esophageal reflux disease without esophagitis; E11.9 Type 2 diabetes mellitus without complications; E66.9 Obesity, unspecified; Z87.891 Personal history of nicotine dependence; Z86.16 Personal history of COVID-19; Z79.899 Other long term (current) drug therapy; Z79.82 Long term (current) use of aspirin; Z79.84 Long term (current) use of oral hypoglycemic drugs; Z68.35 Body mass index [BMI] 35.0-35.9, adult
CPT/HCPCS: 36415; 80053; 81001; 85025; 87086; 93005; 96372; 99285; J0696; J2003; Q0162; 93010; 99283

== ENCOUNTER 2025-02-09 11:47 | Emergency (ER) | payer MEDICAID ==
[2025-02-09 12:09] VITALS: BP 135/78; PULSE 73
== END 2025-02-09 12:32 | disposition home or self-care (01) ==
LOC: JP.ED 11:47
DX: H00.032 Abscess of right lower eyelid (principal); I10 Essential (primary) hypertension; E78.00 Pure hypercholesterolemia, unspecified; K21.9 Gastro-esophageal reflux disease without esophagitis; E11.9 Type 2 diabetes mellitus without complications; E66.9 Obesity, unspecified; Z86.16 Personal history of COVID-19; Z79.899 Other long term (current) drug therapy; Z79.84 Long term (current) use of oral hypoglycemic drugs; Z79.82 Long term (current) use of aspirin; Z68.30 Body mass index [BMI] 30.0-30.9, adult
CPT/HCPCS: 99283